=== PATIENT | female | born 1995 | race Caucasian/White ===

== ENCOUNTER → 2017-09-02 | Outpatient (REF) | payer OTHER ==
[2017-09-02 18:56] LABS: BASO % 0.5 % (0.0-1.0); EOS # 0.1 10^3/uL (0.0-0.50); EOS % 1.2 % (0.0-3.0); HEMATOCRIT 43.3 % (36.0-47.0); HEMOGLOBIN 14.1 g/dl (12.0-16.0); IMMATURE GRANULOCYTE % 0.1 % (0-3.0); LYMPH # 2.8 10^3/uL (1.5-6.5); LYMPH % 32.1 % (24.0-44.0); MEAN CORPUSCULAR HEMOGLOBIN 28.2 pg (27.0-33.0); MEAN CORPUSCULAR HGB CONC 32.6 g/dl (32.0-36.5); MEAN CORPUSCULAR VOLUME 86.6 fl (80.0-96.0); MONO # 0.7 10^3/uL (0.0-0.8); MONO % 7.6 % (0.0-5.0); NEUTROPHILS # 5.1 10^3/uL (1.8-7.7); NEUTROPHILS % 58.5 % (36.0-66.0); PLATELET COUNT, AUTOMATED 322 10^3/uL (150-450); RED CELL DISTRIBUTION WIDTH 12.8 % (11.5-14.5); WHITE BLOOD COUNT 8.6 10^3/uL (4.0-10.0)
[2017-09-02 19:33] LABS: PROLACTIN 7.2 NG/ML
[2017-09-02 19:42] LABS: ALBUMIN 4.5 GM/DL (3.2-5.2); ALBUMIN/GLOBULIN RATIO 1.25 (1.00-1.93); ALKALINE PHOSPHATASE 100 U/L (45-117); ALT/SGPT 52 U/L (12-78); ANION GAP 9 MEQ/L (8-16); AST/SGOT 58 U/L (7-37); BILIRUBIN,TOTAL 2.1 MG/DL (0.2-1.0); BLOOD UREA NITROGEN 15 MG/DL (7-18); CALCIUM LEVEL 9.4 MG/DL (8.5-10.1); CARBON DIOXIDE LEVEL 27 MEQ/L (21-32); CHLORIDE LEVEL 105 MEQ/L (98-107); CHOLESTEROL LEVEL 189 MG/DL (<200); CHOLESTEROL RISK RATIO 3.937 (<5); CREATININE FOR GFR 0.95 MG/DL (0.55-1.30); FREE THYROXINE INDEX 3.6 % (1.3-4.8); GLOMERULAR FILTRATION RATE > 60.0 (>60); GLUCOSE, FASTING 103 MG/DL (70-100); HDL CHOLESTEROL 48 MG/DL (>40); NON-HDL-C 141 MG/DL; POTASSIUM SERUM 4.4 MEQ/L (3.5-5.1); SODIUM LEVEL 141 MEQ/L (136-145); T UPTAKE 30 % (30-39); TOTAL PROTEIN 8.1 GM/DL (6.4-8.2); TRIGLYCERIDES LEVEL 125 MG/DL (<150)
[2017-09-04 14:17] LABS: TESTOSTERONE FREE (DIRECT) 5.1 pg/mL (0.0-4.2)
== END ==
LOC: M SFHCCLAY 11:07
DX: N91.2 Amenorrhea, unspecified (principal); F32.9 Major depressive disorder, single episode, unspecified
CPT/HCPCS: 84146

== ENCOUNTER → 2017-09-08 | Outpatient (CLI) | payer BC, OTHER | LOC: M RAD 06:59 | DX: N91.2 Amenorrhea, unspecified (principal) ==

== ENCOUNTER → 2017-11-04 | Outpatient (CLI) | payer BC, OTHER ==
[2017-11-04 09:47] LABS: CONTROL LINE HCG INT CTR LINE PRESENT; HCG, SERUM QUALITATIVE NEGATIVE (NEGATIVE)
[2017-11-04 09:49] LABS: GLUCOSE, FASTING 112 MG/DL (70-100)
[2017-11-04 09:59] LABS: PROLACTIN 9.8 NG/ML
[2017-11-04 10:00] LABS: FOLLICLE STIMULATING HORMONE 6.8 mIU/mL; LUTEINIZING HORMONE 7.7 mIU/mL
[2017-11-04 10:07] LABS: 1 HR GLUCOSE 220 MG/DL (LESS THAN 199)
[2017-11-04 10:08] LABS: ALBUMIN 3.8 GM/DL (3.2-5.2); ALBUMIN/GLOBULIN RATIO 1.09 (1.00-1.93); ALKALINE PHOSPHATASE 105 U/L (45-117); ALT/SGPT 24 U/L (12-78); AST/SGOT 23 U/L (7-37); BILIRUBIN,DIRECT 0.3 MG/DL (0.0-0.2); BILIRUBIN,TOTAL 1.2 MG/DL (0.2-1.0); FREE THYROXINE INDEX 4.3 % (1.3-4.8); T UPTAKE 35 % (30-39); THYROXINE (T4) 12.4 UG/DL (4.5-12.0); TOTAL PROTEIN 7.3 GM/DL (6.4-8.2)
[2017-11-04 12:37] LABS: 2 HR GLUCOSE 148 MG/DL (LESS THAN 140)
== END ==
LOC: M LAB 08:10
DX: N92.6 Irregular menstruation, unspecified (principal)
CPT/HCPCS: 83001

== ENCOUNTER → 2017-11-12 | Outpatient (REF) | payer OTHER ==
[2017-11-12 12:03] LABS: GLUCOSE, FASTING 111 MG/DL (70-100)
[2017-11-12 13:21] LABS: ESTIMATED AVERAGE GLUCOSE 126 MG/DL (60-110)
== END ==
LOC: M SFHCCLAY 08:43
DX: R73.9 Hyperglycemia, unspecified (principal)

== ENCOUNTER → 2017-12-25 | Outpatient (REF) | payer OTHER | LOC: M LAB REF 13:48 | DX: Z01.411 Encounter for gynecological examination (general) (routine) with abnormal findings (principal); B37.3 Candidiasis of vulva and vagina ==

== ENCOUNTER → 2021-06-12 | Outpatient (REF) | payer OTHER ==
[2021-06-12 17:11] LABS: APPEARANCE, URINE HAZY (CLEAR); BACTERIA, URINE AUTO 1+ (NEGATIVE); BILIRUBIN, URINE AUTO NEGATIVE (NEGATIVE); BLOOD, URINE BLOOD 3+ (NEGATIVE); COLOR, URINE YELLOW (YELLOW); GLUCOSE, URINE (UA) AUTO NEGATIVE (NEGATIVE); KETONE, URINE AUTO NEGATIVE (NEGATIVE); LEUKOCYTE ESTERASE, URINE AUTO 3+ (NEGATIVE); MUCUS, URINE SMALL (NEGATIVE); NITRITE, URINE AUTO POSITIVE (NEGATIVE); PROTEIN, URINE AUTO NEGATIVE (NEGATIVE); RBC, URINE AUTO 2 /HPF (0-3); SPECIFIC GRAVITY URINE AUTO 1.005 (1.002-1.035); SQUAMOUS EPITHELIAL CELL UR AU 1 /HPF (0-6); UROBILINOGEN, URINE AUTO 0.2 mg/dL (0.0-2.0); WBC, URINE AUTO 109 /HPF (0-3)
== END ==
LOC: M LAB REF 16:35
PROVIDERS: ATTEND Physician Assistant Medical
DX: N39.0 Urinary tract infection, site not specified (principal)